=== PATIENT | male | born 1965 | race American Indian/Alaskan Native ===

== ENCOUNTER 2018-02-22 11:11 | Emergency (ER) | payer SELFPAY ==
[2018-02-22 11:42] LABS: Basophils # (Auto) 0.1 K/mm3 (0.0-0.1); Basophils % (Auto) 2.4 % (0.0-1.8); Eosinophils # (Auto) 0.1 K/mm3 (0.0-0.4); Eosinophils % (Auto) 1.8 % (0.0-4.3); Hematocrit 37.4 % (35.5-45.6); Hemoglobin 12.3 gm/dl (11.8-15.2); Lymphocytes # (Auto) 1.3 K/mm3 (1.2-5.4); Lymphocytes % (Auto) 24.2 % (13.4-35.0); Mean Corpuscular HGB Conc 33 % (32-34); Mean Corpuscular Hemoglobin 30 pg (28-32); Mean Corpuscular Volume 91 fl (84-94); Monocytes # (Auto) 0.4 K/mm3 (0.0-0.8); Monocytes % (Auto) 7.1 % (0.0-7.3); Platelet Count 275 K/mm3 (140-440); Red Blood Count 4.13 M/mm3 (3.65-5.03); Red Cell Distribution Width 14.7 % (13.2-15.2)
[2018-02-22 12:56] LABS: Bilirubin,Urine NEG (Negative); Blood,Urine LG (Negative); Color,Urine Yellow (Yellow); Protein,Urine <15 mg/dL mg/dL (Negative); Urobilinogen,Urine < 2.0 mg/dL (<2.0)
[2018-02-22 13:09] LABS: Amphetamine Screen,Urine PRESUMPTIVE NEGATIVE; Benzodiazepines Screen,Urine PRESUMPTIVE NEGATIVE; Cannabinoid Screen,Urine PRESUMPTIVE NEGATIVE; Cocaine Screen,Urine PRESUMPTIVE NEGATIVE; Methadone Screen,Urine PRESUMPTIVE NEGATIVE; Opiate Screen,Urine PRESUMPTIVE NEGATIVE
[2018-02-22] MEDS ORDERED: ATIVAN IM PRN (14:04)
[2018-02-22] MEDS ORDERED: HALDOL IM PRN (14:04)
--- NOTE | 2018-02-22 14:04 | Emergency Department Report ---
ED Psych HPI - General Chief Complaint: Psych Stated Complaint: "I AM GOING TO KILL MYSELF" Time Seen by Provider: 02/22/18 13:58 Source: patient, RN notes reviewed Mode of arrival: Ambulatory Limitations: No Limitations - History of Present Illness Initial Comments: This is a 52-year-old male who is known to this provider, as a past medical history of bipolar, presented to the ER complaining of wanting to kill himself. He does not have a plan. He states that he might overdose. He is not sure. He indicates is been off of his psychiatric medicines for a while. He was documented by the nurse stating that he was going to slit his wrists. He also indicated that he was going to eat his poison. On review of systems, the patient also endorses nontraumatic left-sided flank pain which has been present for 1 year. He denies testicular pain. He does admits to discomfort with urination. He also indicates that he has stents in his kidneys. He is also asking to eat. He cannot describe exacerbating or relieving factors but reports that he's been off of his psychiatric medications For a long time. MD Complaint: suicidal ideation, feels depressed -: Gradual Quality: constant Improves With: none Worsens With: none If Self Harm: admits thoughts of, has plan, other (see history of present illness) - Related Data Allergies Allergy/AdvReac Type Severity Reaction Status Date / Time aspirin Allergy Hives Verified 02/22/18 11:18 morphine Allergy Hives Verified 02/22/18 11:18 Penicillins Allergy Hives Verified 02/22/18 11:18 ED Review of Systems ROS: Stated complaint: "I AM GOING TO KILL MYSELF" Other details as noted in HPI Comment: All other systems reviewed and negative Genitourinary: dysuria Psychiatric: suicidal thoughts ED Past Medical Hx - Past Medical History Previous Medical History?: Yes Additional medical history: Bi polar, ESRD - Surgical History Past Surgical History?: No - Social History Smoking Status: Current Every Day Smoker Substance Use Type: None ED Physical Exam - General Limitations: No Limitations General appearance: alert, in no apparent distress - Head Head exam: Present: atraumatic, normocephalic - Eye Eye exam: Present: normal appearance, EOMI. Absent: nystagmus - ENT ENT exam: Present: normal exam, normal orophraynx, mucous membranes moist, normal external ear exam - Neck Neck exam: Present: normal inspection, full ROM - Respiratory Respiratory exam: Present: normal lung sounds bilaterally. Absent: respiratory distress - Cardiovascular Cardiovascular Exam: Present: regular rate, normal rhythm, normal heart sounds. Absent: systolic murmur, diastolic murmur, rubs, gallop - GI/Abdominal GI/Abdominal exam: Present: soft, normal bowel sounds. Absent: distended, tenderness, guarding, rebound, rigid, pulsatile mass - Rectal Rectal exam: Present: deferred - Extremities Exam Extremities exam: Present: normal inspection, full ROM, normal capillary refill. Absent: pedal edema, joint swelling, calf tenderness - Back Exam Back exam: Present: normal inspection, full ROM, CVA tenderness (L). Absent: tenderness, CVA tenderness (R) - Neurological Exam Neurological exam: Present: alert, oriented X3, CN II-XII intact, normal gait, other (Extraocular movements intact. Tongue midline. No facial droop. Facial sensation intact to light touch in the V1, V2, V3 distribution bilaterally. 5 and 5 strength in 4 extremities.. Sensation is intact to light touch in 4 extremities.). Absent: motor sensory deficit - Psychiatric Psychiatric exam: Present: agitated, suicidal ideation - Skin Skin exam: Present: warm, dry, intact, normal color. Absent: rash ED Course Vital Signs 02/22/18 02/22/18 02/22/18 11:14 14:22 14:24 Temperature 98.5 F 97.5 F L Pulse Rate 92 H 69 Respiratory 18 16 16 Rate Blood Pressure 140/107 Blood Pressure 136/107 [Left] O2 Sat by Pulse 98 100 100 Oximetry 02/22/18 02/23/18 02/24/18 22:24 08:01 05:47 Temperature 97.4 F L 97.9 F Pulse Rate 56 L 53 L 62 Respiratory 14 17 20 Rate Blood Pressure Blood Pressure 134/96 145/101 140/79 [Left] O2 Sat by Pulse 99 98 98 Oximetry 02/24/18 02/24/18 08:15 12:00 Temperature 97.7 F 98.0 F Pulse Rate 51 L 91 H Respiratory 20 18 Rate Blood Pressure Blood Pressure 150/101 113/86 [Left] O2 Sat by Pulse 96 100 Oximetry - Reevaluation(s) Reevaluation #1: 02/22/18 15:36 Differential diagnosis, including but not limited to: Mood disorder, psychosis, medical clearance for psychiatric placement, renal colic, displaced kidney stent , urinary tract infection Assessment and plan: 52-year-old male with a primary complaint of suicidality. He is afebrile with reassuring vital signs, and he is angry and disorganized. He is placed on a 1013. On review of systems he endorses left-sided back pain, and urinary symptoms. He also had left-sided CVA tenderness. Urinalysis is equivocal with 16 white blood cells, otherwise unremarkable, a noncontrast CT scan of the abdomen and pelvis was performed Patient will be placed on a 1013 is pending psychiatric consult. A noncontrast CT scan of the abdomen and pelvis showed no nephrolithiasis, chronic pancreatitis, and a left ureteral stent in good position with no hydronephrosis. An ileus was also suggested. Clinically the patient does not have an ileus. He ate a full meal without difficulty. He will be covered empirically with Levaquin. At this point in time, there does not appear to be in immediate medical contraindication to psychiatric admission, evaluation and consultation. The crisis team has been informed. 02/22/18 15:38 02/22/18 15:46 ED Medical Decision Making - Lab Data Result diagrams: 02/22/18 11:38 02/22/18 11:38 Vital Signs 02/22/18 02/22/18 02/22/18 11:14 14:22 14:24 Temperature 98.5 F 97.5 F L Pulse Rate 92 H 69 Respiratory 18 16 16 Rate Blood Pressure 140/107 Blood Pressure 136/107 [Left] O2 Sat by Pulse 98 100 100 Oximetry Lab Results 02/22/18 02/22/18 02/22/18 Range/Units 11:38 11:38 11:38 WBC (4.5-11.0) K/mm3 RBC (3.65-5.03) M/mm3 Hgb (11.8-15.2) gm/dl Hct (35.5-45.6) % MCV (84-94) fl MCH (28-32) pg MCHC (32-34) % RDW (13.2-15.2) % Plt Count (140-440) K/mm3 Lymph % (Auto) (13.4-35.0) % [place] % (Auto) (0.0-7.3) % Eos % (Auto) (0.0-4.3) % Baso % (Auto) (0.0-1.8) % Lymph # (1.2-5.4) K/mm3 [place] # (0.0-0.8) K/mm3 Eos # (0.0-0.4) K/mm3 Baso # (0.0-0.1) K/mm3 Seg Neutrophils % (40.0-70.0) % Seg Neutrophils # (1.8-7.7) K/mm3 Sodium 141 (137-145) mmol/L Potassium 4.9 (3.6-5.0) mmol/L Chloride 109.3 H (98-107) mmol/L Carbon Dioxide 23 (22-30) mmol/L Anion Gap 14 mmol/L BUN 11 (9-20) mg/dL Creatinine 1.3 (0.8-1.5) mg/dL Estimated GFR 58 ml/min BUN/Creatinine Ratio 8 % Glucose 208 H (75-100) mg/dL Calcium 8.0 L (8.4-10.2) mg/dL Urine Color (Yellow) Urine Turbidity (Clear) Urine pH (5.0-7.0) Ur Specific [place] (1.003-1.030) Urine Protein (Negative) mg/dL Urine Glucose (UA) (Negative) mg/dL Urine Ketones (Negative) mg/dL Urine Blood (Negative) Urine Nitrite (Negative) Urine Bilirubin (Negative) Urine Urobilinogen (<2.0) mg/dL Ur Leukocyte Esterase (Negative) Urine WBC (Auto) (0.0-6.0) /HPF Urine RBC (Auto) (0.0-6.0) /HPF U Epithel Cells (Auto) (0-13.0) /HPF Salicylates < 0.3 L (2.8-20.0) mg/dL Urine Opiates Screen Urine Methadone Screen Acetaminophen < 5.0 L (10.0-30.0) ug/mL Ur Barbiturates Screen Ur Phencyclidine Scrn Ur Amphetamines Screen U Benzodiazepines Scrn Urine Cocaine Screen U Marijuana (THC) Screen Drugs of Abuse Note Plasma/Serum Alcohol (0-0.07) % 02/22/18 02/22/18 02/22/18 Range/Units 11:38 11:38 12:26 WBC 5.2 (4.5-11.0) K/mm3 RBC 4.13 (3.65-5.03) M/mm3 Hgb 12.3 (11.8-15.2) gm/dl Hct 37.4 (35.5-45.6) % MCV 91 (84-94) fl MCH 30 (28-32) pg MCHC 33 (32-34) % RDW 14.7 (13.2-15.2) % Plt Count 275 (140-440) K/mm3 Lymph % (Auto) 24.2 (13.4-35.0) % [place] % (Auto) 7.1 (0.0-7.3) % Eos % (Auto) 1.8 (0.0-4.3) % Baso % (Auto) 2.4 H (0.0-1.8) % Lymph # 1.3 (1.2-5.4) K/mm3 [place] # 0.4 (0.0-0.8) K/mm3 Eos # 0.1 (0.0-0.4) K/mm3 Baso # 0.1 (0.0-0.1) K/mm3 Seg Neutrophils % 64.5 (40.0-70.0) % Seg Neutrophils # 3.3 (1.8-7.7) K/mm3 Sodium (137-145) mmol/L Potassium (3.6-5.0) mmol/L Chloride (98-107) mmol/L Carbon Dioxide (22-30) mmol/L Anion Gap mmol/L BUN (9-20) mg/dL Creatinine (0.8-1.5) mg/dL Estimated GFR ml/min BUN/Creatinine Ratio % Glucose (75-100) mg/dL Calcium (8.4-10.2) mg/dL Urine Color Yellow (Yellow) Urine Turbidity Clear (Clear) Urine pH 5.0 (5.0-7.0) Ur Specific [place] 1.013 (1.003-1.030) Urine Protein <15 mg/dl (Negative) mg/dL Urine Glucose (UA) 150 (Negative) mg/dL Urine Ketones Neg (Negative) mg/dL Urine Blood Lg (Negative) Urine Nitrite Neg (Negative) Urine Bilirubin Neg (Negative) Urine Urobilinogen < 2.0 (<2.0) mg/dL Ur Leukocyte Esterase Tr (Negative) Urine WBC (Auto) 16.0 H (0.0-6.0) /HPF Urine RBC (Auto) 10.0 (0.0-6.0) /HPF U Epithel Cells (Auto) < 1.0 (0-13.0) /HPF Salicylates (2.8-20.0) mg/dL Urine Opiates Screen Urine Methadone Screen Acetaminophen (10.0-30.0) ug/mL Ur Barbiturates Screen Ur Phencyclidine Scrn Ur Amphetamines Screen U Benzodiazepines Scrn Urine Cocaine Screen U Marijuana (THC) Screen Drugs of Abuse Note Plasma/Serum Alcohol < 0.01 (0-0.07) % 02/22/18 Range/Units 12:26 WBC (4.5-11.0) K/mm3 RBC (3.65-5.03) M/mm3 Hgb (11.8-15.2) gm/dl Hct (35.5-45.6) % MCV (84-94) fl MCH (28-32) pg MCHC (32-34) % RDW (13.2-15.2) % Plt Count (140-440) K/mm3 Lymph % (Auto) (13.4-35.0) % [place] % (Auto) (0.0-7.3) % Eos % (Auto) (0.0-4.3) % Baso % (Auto) (0.0-1.8) % Lymph # (1.2-5.4) K/mm3 [place] # (0.0-0.8) K/mm3 Eos # (0.0-0.4) K/mm3 Baso # (0.0-0.1) K/mm3 Seg Neutrophils % (40.0-70.0) % Seg Neutrophils # (1.8-7.7) K/mm3 Sodium (137-145) mmol/L Potassium (3.6-5.0) mmol/L Chloride (98-107) mmol/L Carbon Dioxide (22-30) mmol/L Anion Gap mmol/L BUN (9-20) mg/dL Creatinine (0.8-1.5) mg/dL Estimated GFR ml/min BUN/Creatinine Ratio % Glucose (75-100) mg/dL Calcium (8.4-10.2) mg/dL Urine Color (Yellow) Urine Turbidity (Clear) Urine pH (5.0-7.0) Ur Specific [place] (1.003-1.030) Urine Protein (Negative) mg/dL Urine Glucose (UA) (Negative) mg/dL Urine Ketones (Negative) mg/dL Urine Blood (Negative) Urine Nitrite (Negative) Urine Bilirubin (Negative) Urine Urobilinogen (<2.0) mg/dL Ur Leukocyte Esterase (Negative) Urine WBC (Auto) (0.0-6.0) /HPF Urine RBC (Auto) (0.0-6.0) /HPF U Epithel Cells (Auto) (0-13.0) /HPF Salicylates (2.8-20.0) mg/dL Urine Opiates Screen Presumptive negative Urine Methadone Screen Presumptive negative Acetaminophen (10.0-30.0) ug/mL Ur Barbiturates Screen Presumptive negative Ur Phencyclidine Scrn Presumptive negative Ur Amphetamines Screen Presumptive negative U Benzodiazepines Scrn Presumptive negative Urine Cocaine Screen Presumptive negative U Marijuana (THC) Screen Presumptive negative Drugs of Abuse Note Disclamer Plasma/Serum Alcohol (0-0.07) % - Radiology Data Radiology results: report reviewed Critical care attestation.: If time is entered above; I have spent that time in minutes in the direct care of this critically ill patient, excluding procedure time. ED Disposition Clinical Impression: Medical clearance for psychiatric admission Disposition: [id number]/[id number] PSY HOSP/PSY UNIT Is pt being admited?: No Does the pt Need Aspirin: No Condition: Good Referrals: PRIMARY CARE, [Primary Care Provider] - 3-5 Days
[2018-02-22] MEDS ORDERED: REGLAN PO PRN (15:48)
[2018-02-22] MEDS: LEVAQUIN PO SCH ×2 (18:30→22:05)
[2018-02-23] MEDS: LEVAQUIN PO SCH ×2 (11:33→21:55)
[2018-02-23] MEDS: TYLENOL PO PRN (11:33)
[2018-02-23] MEDS ORDERED: TORADOL IM ONE (13:37)
--- NOTE | 2018-02-23 14:48 | Consultation ---
History of Present Illness - Reason for Consult Consult date: 02/23/18 Reason for consult: Mental Health Evaluation Requesting physician: CHRISTINE MCKEON - Chief Complaint Chief complaint: "I hear voices" - History of Present Psychiatric Illness 52 y.o. AA male presenting to the ER for SI's. Today the patient is calm, but disorganized during the assessment. He had to be redirected several time to keep him on topic. He stated that he was hearing voices the past several days telling him to kill himself. He stated not taking his medications in weeks ( Trazodone/Risperdal). He has passive SI's without current a plan. He stated he planned to cut his wrist yesterday because the voices was so loud in his ear. He is adamant about wanting to be back on his medications. He denies HI's and VH 's. He stated that his sleep has been erratic lately. He denies recreational drug use and alcohol consumption (etoh). Medications and Allergies Allergies Allergy/AdvReac Type Severity Reaction Status Date / Time aspirin Allergy Hives Verified 02/22/18 11:18 morphine Allergy Hives Verified 02/22/18 11:18 Penicillins Allergy Hives Verified 02/22/18 11:18 Active Meds: Active Medications Acetaminophen (Tylenol) 650 mg PO Q6HR PRN PRN Reason: Pain Last Admin: 02/23/18 11:33 Dose: 650 mg Haloperidol Lactate (Haldol) 5 mg IM Q6HR PRN PRN Reason: Agitation Last Admin: 02/22/18 14:26 Dose: 5 mg Levofloxacin (Levaquin) 750 mg PO BID NOÉ Stop: 02/27/18 15:59 Last Admin: 02/23/18 11:33 Dose: 750 mg Lorazepam (Ativan) 2 mg IM Q4HR PRN PRN Reason: Agitation Last Admin: 02/22/18 14:25 Dose: 2 mg Metoclopramide HCl (Reglan) 10 mg PO QID PRN PRN Reason: Nausea Past psychiatric history - Past Medical History Past Medical History: other (Kidney issue per the patient) - past Psychiatric treatment and history psychiatric treatment history: Multiple inpatient psy services. He cannot confirm or deny a fam psy hx. - Social History Social history: Lives alone Mental Status Exam - Vital signs Last Vital Signs Temp 97.9 F 02/23/18 08:01 Pulse 53 L 02/23/18 08:01 Resp 17 02/23/18 08:01 BP 145/101 02/23/18 08:01 Pulse Ox 98 02/23/18 08:01 - Exam Narrative exam: MSE: Appearance: calm, cooperative Behavior: regular eye contact Speech: regular rate and tone Mood: "okay" Affect: flat Thought Process: disorganized, tangent Thought Content: denies HI's and VH's, intermittent AH's Motor Activity: lying in bed Cognition: A/O x 3 Insight: poor Judgment: poor Results Result Diagrams: 02/22/18 11:38 02/22/18 11:38 All other labs normal. Assessment and Plan Assessment and plan: Impression: Unspecified Mood DO with psy features. Today the patient is calm, but disorganized during the assessment. The patient has passive SI's. The patient UDS is negative. DDx: R/O Bipolar DO, R/O Schizoaffective DO, R/O Schizophrenia Recommendation/Plan: Continue 1013 with placement to inpatient psy services. Start Trazodone 50 mg PO HS for sleep and Risperdal 1 mg PO HS for psychosis/ mood. Discussed possible metabolic side effects of Risperdal with patient. Discussed possible priapism/suicidality/medication induced [place] with patient reference Trazodone.
[2018-02-23] MEDS: RisperDAL PO SCH (21:55)
[2018-02-23] MEDS: DESYREL PO SCH (21:55)
[2018-02-24] MEDS: LEVAQUIN PO SCH ×2 (10:30→22:13)
--- NOTE | 2018-02-24 15:05 | Progress Note ---
Subjective - Reason for Consult Consult date: 02/24/18 Reason for consult: Psychiatric Follow-up Evaluation - Chief Complaint Chief complaint: "I hear voices" Mental Status Exam - Vital signs Last Vital Signs Temp 98.0 F 02/24/18 12:00 Pulse 91 H 02/24/18 12:00 Resp 18 02/24/18 12:00 BP 113/86 02/24/18 12:00 Pulse Ox 100 02/24/18 12:00
[2018-02-24] MEDS: RisperDAL PO SCH (22:13)
[2018-02-24] MEDS: DESYREL PO SCH (22:13)
[2018-02-24] MEDS: TYLENOL PO PRN (22:13)
--- NOTE | 2018-02-25 10:21 | Progress Note ---
Subjective - Reason for Consult Consult date: 02/25/18 Reason for consult: Psychiatry Follow-up - Chief Complaint Chief complaint: "I feel a little better" 52 y.o. AA male presenting to the ER for SI's. Today the patient is calm and cooperative during the assessment. He stated that the voices are "decreasing." He stated getting sleep last night. He denies SI/HI's and AVH's. He denies any side effects from his medications. Mental Status Exam - Vital signs Last Vital Signs Temp 98.1 F 02/25/18 09:55 Pulse 88 02/25/18 09:55 Resp 18 02/25/18 09:55 BP 106/77 02/25/18 09:55 Pulse Ox 99 02/24/18 20:28 - Exam Narrative exam: MSE: Appearance: calm, cooperative Behavior: regular eye contact Speech: regular rate and tone Mood: "okay" Affect: congruent to mood Thought Process: circumstantial Thought Content: denies SI/HI's and VH's, decreasing AH's Motor Activity: lying in bed Cognition: A/O x 3 Insight: variable Judgment: variable Assessment and Plan Impression: Unspecified Mood DO with psy features. Today the patient is calm and cooperative during the assessment. The patient UDS is negative. DDx: R/O Bipolar DO, R/O Schizoaffective DO, R/O Schizophrenia Recommendation/Plan: Continue 1013 with placement to inpatient psy services. Continue Trazodone 50 mg PO HS for sleep and Risperdal 1 mg PO HS for psychosis/ mood. Discussed possible metabolic side effects of Risperdal with patient. Discussed possible priapism/suicidality/medication induced [place] with patient reference Trazodone.
[2018-02-25] MEDS: LEVAQUIN PO SCH ×2 (10:42→22:37)
--- NOTE | 2018-02-25 14:32 | Cat Scan Report ---
CT ABDOMEN PELVIS WITHOUT CONTRAST: HISTORY: Left flank pain. COMPARISON: none. TECHNIQUE: Helical CT in 1.25mm intervals without IV contrast. Sagittal and coronal reconstructions. FINDINGS: Lung bases: Adequately aerated. Normal heart size. Liver: Normal. Biliary system: Multiple calcified gallstones are identified in the gallbladder. No biliary dilatation or acute inflammation. Pancreas: The pancreas is atrophic with scattered calcifications consistent with chronic pancreatitis. No acute inflammation identified. Spleen: Normal. Kidneys/ureters/bladder: Bilateral renal cysts are identified measuring approximately 3 cm. No evidence for nephrolithiasis or hydronephrosis. A left ureteral stent extends from the left renal pelvis to the bladder. No hydronephrosis is identified. A 2 cm bladder diverticulum appears to encompass the right UVJ. No gross bladder abnormality otherwise. Adrenal glands: Normal. Aorta: Normal. Intestines: There is moderate fluid throughout the small bowel loops. The colon is unremarkable. A mild ileus could be considered. No evidence for obstruction or focal inflammation. Appendix: Not confidently identified, correlate with surgical history. Pelvic viscera: Normal. Ascites: None. Adenopathy: None. Musculoskeletal: Moderate thoracolumbar spondylosis. No fracture or suspicious bony lesion. IMPRESSION: No acute inflammatory process is identified. Bilateral renal cysts. A left ureteral stent appears in adequate position. No hydronephrosis is appreciated. Cholelithiasis. Chronic pancreatitis. Findings compatible with a mild diffuse ileus.
[2018-02-25] MEDS: DESYREL PO SCH (22:37)
[2018-02-25] MEDS: RisperDAL PO SCH (22:38)
[2018-02-26 10:30] VITALS: BP 100/69
[2018-02-26] MEDS: LEVAQUIN PO SCH (11:35)
--- NOTE | 2018-02-26 12:24 | Progress Note ---
Subjective - Reason for Consult Consult date: 02/26/18 Reason for consult: Psychiatry Follow-up - Chief Complaint Chief complaint: "I will stay on my medications" 52 y.o. AA male presenting to the ER for SI's. Today the patient is calm and cooperative during the assessment. He stated feeling "really good" today. He stated that the voices has ceased. He stated that he will need a referral for outpatient psy services when discharged. He denies SI/HI's and AVH's. He denies any side effects from his medications. Mental Status Exam - Vital signs Last Vital Signs Temp 98.0 F 02/26/18 10:28 Pulse 94 H 02/26/18 10:28 Resp 18 02/26/18 10:28 BP 100/69 02/26/18 10:28 Pulse Ox 100 02/26/18 10:28 - Exam Narrative exam: MSE: Appearance: calm, cooperative Behavior: regular eye contact Speech: regular rate and tone Mood: "okay" Affect: congruent to mood Thought Process: linear Thought Content: denies SI/HI's and AVH's Motor Activity: lying in bed Cognition: A/O x 3 Insight: appropriate Judgment: appropriate Assessment and Plan Impression: Unspecified Mood DO with psy features. Today the patient is calm and cooperative during the assessment. The patient UDS is negative. DDx: R/O Bipolar DO, R/O Schizoaffective DO, R/O Schizophrenia Recommendation/Plan: Rescind 1013. Continue Trazodone 50 mg PO HS for sleep and Risperdal 1 mg PO HS for psychosis/mood. Discussed possible metabolic side effects of Risperdal with patient. Discussed possible priapism/suicidality/ medication induced [place] with patient reference Trazodone. The patient can follow up with [facility] for outpatient psy services.
--- NOTE | 2018-02-26 12:51 | Event Note ---
Date: 02/26/18 The patient's 1013 has been discontinued by the psychiatry team. The patient is afebrile with reassuring vital signs. His urine culture was negative. His physical exam is equally unremarkable. This provided will continue the Risperdal is recommended by psychiatry, however he can follow up with an outpatient primary care doctor or psychiatrist for sleep disturbance. It is not mild pain at the patient requires emergent prescription of trazodone, and this can be further managed as an outpatient. Vital Signs 02/22/18 02/22/18 02/22/18 11:14 14:22 14:24 Temperature 98.5 F 97.5 F L Pulse Rate 92 H 69 Respiratory 18 16 16 Rate Blood Pressure 140/107 Blood Pressure 136/107 [Left] O2 Sat by Pulse 98 100 100 Oximetry 02/22/18 02/23/18 02/24/18 22:24 08:01 05:47 Temperature 97.4 F L 97.9 F Pulse Rate 56 L 53 L 62 Respiratory 14 17 20 Rate Blood Pressure Blood Pressure 134/96 145/101 140/79 [Left] O2 Sat by Pulse 99 98 98 Oximetry 02/24/18 02/24/18 02/24/18 08:15 12:00 20:28 Temperature 97.7 F 98.0 F 98.3 F Pulse Rate 51 L 91 H 82 Respiratory 20 18 18 Rate Blood Pressure Blood Pressure 150/101 113/86 125/83 [Left] O2 Sat by Pulse 96 100 99 Oximetry 02/25/18 02/26/18 02/26/18 09:55 00:17 00:21 Temperature 98.1 F 98.1 F Pulse Rate 88 65 Respiratory 18 18 18 Rate Blood Pressure Blood Pressure 106/77 136/98 [Left] O2 Sat by Pulse 100 100 Oximetry 02/26/18 02/26/18 08:58 10:28 Temperature 98.0 F Pulse Rate 94 H Respiratory 18 Rate Blood Pressure Blood Pressure 100/69 [Left] O2 Sat by Pulse 100 100 Oximetry Labs 02/22/18 02/22/18 02/22/18 11:38 11:38 11:38 WBC RBC Hgb Hct MCV MCH MCHC RDW Plt Count Lymph % (Auto) Ogle % (Auto) Eos % (Auto) Baso % (Auto) Lymph # Ogle # Eos # Baso # Seg Neutrophils % Seg Neutrophils # Sodium 141 Potassium 4.9 Chloride 109.3 H Carbon Dioxide 23 Anion Gap 14 BUN 11 Creatinine 1.3 Estimated GFR 58 BUN/Creatinine Ratio 8 Glucose 208 H Calcium 8.0 L Urine Color Urine Turbidity Urine pH Ur Specific Stringer Urine Protein Urine Glucose (UA) Urine Ketones Urine Blood Urine Nitrite Urine Bilirubin Urine Urobilinogen Ur Leukocyte Esterase Urine WBC (Auto) Urine RBC (Auto) U Epithel Cells (Auto) Salicylates < 0.3 L Urine Opiates Screen Urine Methadone Screen Acetaminophen < 5.0 L Ur Barbiturates Screen Ur Phencyclidine Scrn Ur Amphetamines Screen U Benzodiazepines Scrn Urine Cocaine Screen U Marijuana (THC) Screen Drugs of Abuse Note Plasma/Serum Alcohol 02/22/18 02/22/18 02/22/18 11:38 11:38 12:26 WBC 5.2 RBC 4.13 Hgb 12.3 Hct 37.4 MCV 91 MCH 30 MCHC 33 RDW 14.7 Plt Count 275 Lymph % (Auto) 24.2 Ogle % (Auto) 7.1 Eos % (Auto) 1.8 Baso % (Auto) 2.4 H Lymph # 1.3 Ogle # 0.4 Eos # 0.1 Baso # 0.1 Seg Neutrophils % 64.5 Seg Neutrophils # 3.3 Sodium Potassium Chloride Carbon Dioxide Anion Gap BUN Creatinine Estimated GFR BUN/Creatinine Ratio Glucose Calcium Urine Color Yellow Urine Turbidity Clear Urine pH 5.0 Ur Specific Stringer 1.013 Urine Protein <15 mg/dl Urine Glucose (UA) 150 Urine Ketones Neg Urine Blood Lg Urine Nitrite Neg Urine Bilirubin Neg Urine Urobilinogen < 2.0 Ur Leukocyte Esterase Tr Urine WBC (Auto) 16.0 H Urine RBC (Auto) 10.0 U Epithel Cells (Auto) < 1.0 Salicylates Urine Opiates Screen Urine Methadone Screen Acetaminophen Ur Barbiturates Screen Ur Phencyclidine Scrn Ur Amphetamines Screen U Benzodiazepines Scrn Urine Cocaine Screen U Marijuana (THC) Screen Drugs of Abuse Note Plasma/Serum Alcohol < 0.01 02/22/18 12:26 WBC RBC Hgb Hct MCV MCH MCHC RDW Plt Count Lymph % (Auto) Ogle % (Auto) Eos % (Auto) Baso % (Auto) Lymph # Ogle # Eos # Baso # Seg Neutrophils % Seg Neutrophils # Sodium Potassium Chloride Carbon Dioxide Anion Gap BUN Creatinine Estimated GFR BUN/Creatinine Ratio Glucose Calcium Urine Color Urine Turbidity Urine pH Ur Specific Stringer Urine Protein Urine Glucose (UA) Urine Ketones Urine Blood Urine Nitrite Urine Bilirubin Urine Urobilinogen Ur Leukocyte Esterase Urine WBC (Auto) Urine RBC (Auto) U Epithel Cells (Auto) Salicylates Urine Opiates Screen Presumptive negative Urine Methadone Screen Presumptive negative Acetaminophen Ur Barbiturates Screen Presumptive negative Ur Phencyclidine Scrn Presumptive negative Ur Amphetamines Screen Presumptive negative U Benzodiazepines Scrn Presumptive negative Urine Cocaine Screen Presumptive negative U Marijuana (THC) Screen Presumptive negative Drugs of Abuse Note Disclamer Plasma/Serum Alcohol
== END 2018-02-26 14:12 | disposition home or self-care (01) ==
LOC: EEVIPCON 11:11 → ED 11:11
DX: F31.9 Bipolar disorder, unspecified (principal); R10.9 Unspecified abdominal pain; N18.6 End stage renal disease; F17.200 Nicotine dependence, unspecified, uncomplicated; Z88.6 Allergy status to analgesic agent; Z88.0 Allergy status to penicillin
CPT/HCPCS: 36415; 74176; 80048; 80307; 81001; 85025; 87086; 96372; 99284; G0480; J1630; J1885; J2060; 80320